=== PATIENT | female | born 1995 | race Caucasian/White ===

== ENCOUNTER 2019-03-17 08:08 | Inpatient (IN) ==
[2019-03-17] MEDS ORDERED: DEXTROSE 50% 50 ML SYRINGE IV PRN (08:43)
[2019-03-17] MEDS ORDERED: SODIUM CHLORIDE 0.9% 1000ML 1,000 ML IV PRN (08:43)
[2019-03-17] MEDS ORDERED: OXYTOCIN 30 UNITS/500 ML BAG IV PRN ×3 (08:43→21:26)
[2019-03-17] MEDS ORDERED: INSULIN REGULAR 250 UNITS in SODIUM CHLORIDE 0.9% 247.5 ML IV PRN (08:43)
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
[2019-03-17] MEDS: LACTATED RINGER'S 1,000 ML IV PRN ×3 (09:10→16:54)
[2019-03-17 09:14] LABS: Hematocrit (blood only) 31.6 % (37-47); Mean Platelet Volume 10.4 fL (7.4-10.4); Platelet Count 177 K/uL (130-400); RDW Coefficient of Variation 15.4 % (11.5-14.5); RDW Standard Deviation 44.6 fL (36.4-46.3); White Blood Count 11.12 K/uL (4.8-10.8)
[2019-03-17 09:22] LABS: Mean Corpuscular Hgb Conc 31.6 g/dL (32-36)
[2019-03-17] MEDS: DEXTROSE 5% 1,000 ML IV SCH ×2 (09:56→19:33)
--- NOTE | 2019-03-17 11:46 | Labor Progress Brief Note ---
Date of Service March 17, 2019 Subjective Reason For Note: Routine Evaluation Tolerating Contractions Assessment & Plan (1) Elective induction of labor planned: Continue current management, pitocin, epidural on request, insulin protocol prn Present on Admission?: Yes Physical Exam Genitourinary: Manual OB Exam: + cervical dilation 2 cm, + cervical effacement 90%, + station -2 and + amniotic fluid (AROM copious clear) clear OB Exam Monitor Tracing: + external FHT monitor used, + external uterine monitor used and + category I Results & Data Vital Signs (Past 12 Hours) Vital Signs Temp Pulse Resp BP 03/17/19 11:37 100 H 125/85 03/17/19 11:24 88 136/83 03/17/19 11:08 97 H 123/81 03/17/19 10:52 89 116/66 03/17/19 10:37 93 H 20 119/63 03/17/19 08:54 98.4 F 104 H 20 129/84 03/17/19 08:14 104 H 129/84
[2019-03-17] MEDS ORDERED: NALOXONE HCL 1 MG in SODIUM CHLORIDE 0.9% 1000ML 1,000 ML IV PRN (13:11)
[2019-03-17] MEDS ORDERED: ONDANSETRON INJ 2 MG/ML 2 ML VIAL IV PRN (13:11)
[2019-03-17] MEDS ORDERED: NALBUPHINE HCL INJ 10 MG/ML AMP IV PRN (13:11)
[2019-03-17] MEDS ORDERED: ePHEDrine sulfate 50 MG/ML AMP IV PRN (13:11)
[2019-03-17] MEDS ORDERED: DiphenhydrAMINE HCL 50 MG/ML VIAL IV PRN (13:11)
[2019-03-17] MEDS ORDERED: fentaNYL 2MCG/ML ROPIV 1.25MG/ML 100 ML BAG EPI PRN (13:11)
[2019-03-17] MEDS ORDERED: NALOXONE HCL 0.4 MG/1 ML VIAL/CARP IV PRN (13:11)
--- NOTE | 2019-03-17 13:14 | Anesthesiology Consultation ---
Date of Service March 17, 2019 Assessment & Plan Chart Review Chart Review: Patient NOT seen in Pre Admission Testing and Acceptable Risk for Labor Epidural Consults Requested none ASA ASA3 Proposed Anesthesia Anesthesia Type: Labor Epidural and CSE Risk / Benefits Reviewed With: PT / POA / Parent / Guardian, Accepts Plan and Informed Consent Obtained History Height/Weight Height: 5 ft 4 in Weight: 92.533 kg Allergies Allergy/AdvReac Type Severity Reaction Status Date / Time prochlorperazine AdvReac Mild Agitated Verified 03/17/19 08:25 [From Compazine] Medications Home Medications Medication Instructions Recorded Confirmed Last Taken insulin glargine (U- 100) 100 See Rx Instructions SUBCUT 03/16/19 03/17/19 03/15/19 19:00 unit/mL subcutaneous solution .COMPLEX ml ferrous sulfate 27 mg PO DAILY 03/17/19 03/17/19 03/16/19 22:00 vit no.[id number] 1 tab PO DAILY 03/17/19 03/17/19 03/16/19 08:00 [ Vitamin] Active Medications Generic Name Dose Route Start Last Admin Trade Name Freq PRN Reason Stop Dose Admin Dextrose 1,000 mls @ 100 mls/hr 03/17/19 08:45 03/17/19 13:02 D5w IV 04/16/19 08:44 100 mls/hr .Q10H LISY Infusion Protocol Insulin Human Regular 250 250 mls @ 0 mls/hr 03/17/19 08:43 03/17/19 13:02 units/ Sodium Chloride IV 04/16/19 08:42 0 mls/hr Q24H PRN Infusion BSG 80mg/dL or above Protocol Per Protocol Oxytocin 30 units in 500 mls @ 9 mls/hr 03/17/19 08:43 03/17/19 13:00 Pitocin IV 03/19/19 08:42 0.66 units/hr .Q24H PRN 11 mls/hr Labor Induction/Augmentation Titration Protocol 0.54 UNITS/HR Lactated Ringer's 1,000 mls @ 125 mls/hr 03/17/19 08:43 03/17/19 13:10 Lr IV 03/19/19 08:42 999 mls/hr .Q8H PRN Administration L&D Protocol Protocol NPO Date Last Intake of Fluids: 03/17/19 Time Last Intake of Fluids: 07:30 Date Last Intake of Solids: 03/17/19 Time Last Intake of Solids: 07:30 Past Medical History Medical History History of anxiety History of breast lump History of depression History of endometriosis History of migraine History of ovarian cyst Exercise / Class Metabolic Activity II 4-5 Yardwork/Stairs/Walk up hill Past Family History Family History Aunt Breast cancer Father Colorectal cancer Diabetes Mother Hypertension Grandfather (Maternal) Hypertension Past Surgical History Surgical History S/P laparoscopy diagnostic S/P ovarian cystectomy Past Anesthesia History No Family Hx of Anesthesia Complications and Other (Slow to wake up) History of PONV No Hx of PONV and No Hx of Motion Sickness Social History Smoking Status: Never smoker Do You Dip or Chew Tobacco: No Hx Alcohol Use: No Hx Substance Use: No Review of Systems no chest pain or sob Physical Exam Vital Signs Last Vital Signs Temp 36.9 C 03/17/19 08:54 Pulse 84 03/17/19 12:37 Resp 20 03/17/19 10:37 BP 124/73 03/17/19 12:37 ENMT Mouth: no TMJ abnormality Thyromental Distance: > or= 3.5 Finger Breadths Mallampati Class: II Neck normal visual inspection Respiratory normal respiratory effort Auscultation: lungs clear to auscultation bilaterally Cardiovascular Rate/Rhythm: regular rate and regular rhythm Musculoskeletal Spine: normal cervical ROM Neurologic moves all extremities Psychiatric Orientation: alert and oriented x 3 Testing Laboratory Results 03/17/19 09:02 03/17/19 03/17/19 03/17/19 13:00 12:00 11:00 POC Glucose 79 84 80 03/17/19 03/17/19 09:45 08:41 POC Glucose 81 80
[2019-03-17] MEDS ORDERED: fentaNYL citrate 100 MCG/2 ML VIAL ONE ×2 (13:38→20:53)
[2019-03-17] MEDS ORDERED: BUPIVACAINE 0.25% 30 ML VIAL ONE (13:38)
[2019-03-17] MEDS ORDERED: ePHEDrine sulfate 50 MG/ML AMP ONE (13:38)
[2019-03-17] MEDS ORDERED: fentaNYL 2MCG/ML ROPIV 1.25MG/ML 100 ML BAG EPI ONE (13:39)
--- NOTE | 2019-03-17 14:23 | Labor Progress Brief Note ---
Date of Service March 17, 2019 Subjective Reason For Note: Routine Evaluation Comfortable with Epidural Physical Exam Genitourinary: Manual OB Exam: + cervical dilation 4 cm, + cervical effacement 100%, + station -1 and + amniotic fluid clear OB Exam Monitor Tracing: + category I Results & Data Vital Signs (Past 12 Hours) Vital Signs Temp Pulse Resp BP Pulse Ox 03/17/19 14:17 103 H 100 03/17/19 14:12 92 H 98 03/17/19 14:10 87 110/71 03/17/19 14:07 102 H 97 03/17/19 14:02 92 H 100 03/17/19 13:57 90 99 03/17/19 13:52 105 H 16 131/79 100 03/17/19 13:48 87 123/71 03/17/19 13:47 91 H 95 03/17/19 13:46 90 119/63 03/17/19 13:44 93 H 20 123/68 03/17/19 13:42 96 H 116/67 99 03/17/19 13:40 87 112/58 L 03/17/19 13:38 100 H 121/68 03/17/19 13:37 102 H 100 03/17/19 13:36 91 H 128/74 03/17/19 13:33 82 126/82 03/17/19 13:32 98 H 97 03/17/19 13:31 83 122/75 03/17/19 13:27 91 H 99 03/17/19 13:23 103 H 94 03/17/19 13:22 98.6 F 95 H 98 03/17/19 12:37 84 124/73 03/17/19 11:37 100 H 125/85 03/17/19 11:24 88 136/83 03/17/19 11:08 97 H 123/81 03/17/19 10:52 89 116/66 03/17/19 10:37 93 H 20 119/63 03/17/19 08:54 98.4 F 104 H 20 129/84 03/17/19 08:14 104 H 129/84
--- NOTE | 2019-03-17 18:40 | Labor Progress Brief Note ---
Date of Service March 17, 2019 Subjective Reason For Note: Routine Evaluation Comfortable with Epidural Assessment & Plan (1) Elective induction of labor planned: Minimal urge to push. Will labor down until urge to hopefully minimize length of second stage, as this patient will undoubtedly have some difficulty with positioning and feeling exposed. She has done well with exams but still requires about 1 full minute of coached breathing and time to relax before she can permit a vaginal exam even with epidural. Will try to minimize the second stage and keep her covered as much as possible. Present on Admission?: Yes Physical Exam Genitourinary: Manual OB Exam: + cervical dilation 10 cm, + cervical effacement 100%, + station + 1 and + amniotic fluid clear OB Exam Monitor Tracing: + category I Results & Data Vital Signs (Past 12 Hours) Vital Signs Temp Pulse Resp BP Pulse Ox 03/17/19 18:36 106 H 99 03/17/19 18:28 111 H 90 03/17/19 18:27 92 H 93 03/17/19 18:25 98.2 F 104 H 20 135/83 03/17/19 18:22 91 H 100 03/17/19 18:17 86 99 03/17/19 18:16 88 91 03/17/19 18:12 91 H 98 03/17/19 18:11 86 91 03/17/19 18:10 87 22 123/72 03/17/19 18:07 84 96 03/17/19 18:04 94 H 94 03/17/19 18:02 90 99 03/17/19 17:59 92 H 88 L 03/17/19 17:57 86 100 03/17/19 17:54 95 H 128/61 03/17/19 17:53 90 93 03/17/19 17:52 94 H 100 03/17/19 17:48 80 91 03/17/19 17:47 82 98 03/17/19 17:42 91 H 100 03/17/19 17:40 86 132/83 03/17/19 17:38 104 H 91 03/17/19 17:37 106 H 97 03/17/19 17:33 91 H 93 03/17/19 17:32 92 H 94 03/17/19 17:27 90 98 03/17/19 17:24 91 H 127/70 03/17/19 17:22 94 H 98 03/17/19 17:17 92 H 98 03/17/19 17:12 103 H 99 03/17/19 17:10 86 117/78 03/17/19 17:07 90 97 03/17/19 17:02 80 98 03/17/19 16:57 91 H 98 03/17/19 16:55 95 H 119/86 03/17/19 16:52 83 97 03/17/19 16:47 81 96 03/17/19 16:42 84 93 03/17/19 16:41 88 125/88 03/17/19 16:37 84 97 03/17/19 16:32 82 97 03/17/19 16:27 91 H 97 03/17/19 16:25 98.2 F 82 16 127/76 03/17/19 16:22 91 H 97 03/17/19 16:17 92 H 97 03/17/19 16:12 84 97 03/17/19 16:11 81 121/67 03/17/19 16:07 107 H 100 03/17/19 16:02 92 H 97 03/17/19 15:57 83 97 03/17/19 15:55 76 110/68 03/17/19 15:52 81 97 03/17/19 15:47 85 97 03/17/19 15:43 98.8 F 20 03/17/19 15:42 95 H 98 03/17/19 15:40 75 124/69 03/17/19 15:37 82 97 03/17/19 15:32 81 97 03/17/19 15:27 81 97 03/17/19 15:24 80 115/70 03/17/19 15:22 82 96 03/17/19 15:17 82 97 03/17/19 15:12 93 H 97 03/17/19 15:10 83 107/62 03/17/19 15:07 82 97 03/17/19 15:02 86 97 03/17/19 14:57 80 97 03/17/19 14:56 89 108/64 03/17/19 14:52 85 97 03/17/19 14:47 80 97 03/17/19 14:42 92 H 96 03/17/19 14:40 93 H 115/65 03/17/19 14:37 79 97 03/17/19 14:32 88 98 03/17/19 14:29 98.6 F 98 H 20 123/67 03/17/19 14:27 95 H 94 03/17/19 14:24 83 94 03/17/19 14:22 96 H 98 03/17/19 14:17 103 H 100 03/17/19 14:12 92 H 98 03/17/19 14:10 87 110/71 03/17/19 14:07 102 H 97 03/17/19 14:02 92 H 100 03/17/19 13:57 90 99 03/17/19 13:52 105 H 16 131/79 100 03/17/19 13:48 87 123/71 03/17/19 13:47 91 H 95 03/17/19 13:46 90 119/63 03/17/19 13:44 93 H 20 123/68 03/17/19 13:42 96 H 116/67 99 03/17/19 13:40 87 112/58 L 03/17/19 13:38 100 H 121/68 03/17/19 13:37 102 H 100 03/17/19 13:36 91 H 128/74 03/17/19 13:33 82 126/82 03/17/19 13:32 98 H 97 03/17/19 13:31 83 122/75 03/17/19 13:27 91 H 99 03/17/19 13:23 103 H 94 03/17/19 13:22 98.6 F 95 H 98 03/17/19 12:37 84 124/73 03/17/19 11:37 100 H 125/85 03/17/19 11:24 88 136/83 03/17/19 11:08 97 H 123/81 03/17/19 10:52 89 116/66 03/17/19 10:37 93 H 20 119/63 03/17/19 08:54 98.4 F 104 H 20 129/84 03/17/19 08:14 104 H 129/84
--- NOTE | 2019-03-17 20:04 | Labor Progress Brief Note ---
Date of Service March 17, 2019 Subjective Reason For Note: Routine Evaluation Comfortable with Epidural Assessment & Plan (1) Elective induction of labor planned: Urge to push, complete, head descended to +2. Begin second stage. First pushes are very effective and patient is receptive to coaching and positioning in lithotomy. Present on Admission?: Yes Physical Exam Genitourinary: Manual OB Exam: + cervical dilation 10 cm, + cervical effacement 100%, + station + 2 and + amniotic fluid clear OB Exam Monitor Tracing: + category I Results & Data Vital Signs (Past 12 Hours) Vital Signs Temp Pulse Resp BP Pulse Ox 03/17/19 19:58 95 H 99 03/17/19 19:56 106 H 88 L 03/17/19 19:55 102 H 141/78 H 03/17/19 19:53 97 H 99 03/17/19 19:49 109 H 119/74 03/17/19 19:48 91 H 98 03/17/19 19:43 93 H 99 03/17/19 19:38 106 H 99 03/17/19 19:33 101 H 100 03/17/19 19:28 91 H 99 03/17/19 19:25 93 H 91 03/17/19 19:24 105 H 138/73 03/17/19 19:23 100 H 100 03/17/19 19:20 106 H 91 03/17/19 19:18 92 H 100 03/17/19 19:15 98.4 F 18 03/17/19 19:13 94 H 100 03/17/19 19:10 97 H 137/80 03/17/19 19:09 97 H 89 L 03/17/19 19:08 102 H 98 03/17/19 19:03 97 H 100 03/17/19 19:00 108 H 133/69 03/17/19 18:58 114 H 92 03/17/19 18:53 119 H 89 L 03/17/19 18:46 102 H 100 03/17/19 18:41 110 H 100 03/17/19 18:40 98 H 113/69 03/17/19 18:39 20 03/17/19 18:36 106 H 99 03/17/19 18:28 111 H 90 03/17/19 18:27 92 H 93 03/17/19 18:25 98.2 F 104 H 20 135/83 03/17/19 18:22 91 H 100 03/17/19 18:17 86 99 03/17/19 18:16 88 91 03/17/19 18:12 91 H 98 03/17/19 18:11 86 91 03/17/19 18:10 87 22 123/72 03/17/19 18:07 84 96 03/17/19 18:04 94 H 94 03/17/19 18:02 90 99 03/17/19 17:59 92 H 88 L 03/17/19 17:57 86 100 03/17/19 17:54 95 H 128/61 03/17/19 17:53 90 93 03/17/19 17:52 94 H 100 03/17/19 17:48 80 91 03/17/19 17:47 82 98 03/17/19 17:42 91 H 100 03/17/19 17:40 86 132/83 03/17/19 17:38 104 H 91 03/17/19 17:37 106 H 97 03/17/19 17:33 91 H 93 03/17/19 17:32 92 H 94 03/17/19 17:27 90 98 03/17/19 17:24 91 H 127/70 03/17/19 17:22 94 H 98 03/17/19 17:17 92 H 98 03/17/19 17:12 103 H 99 03/17/19 17:10 86 117/78 03/17/19 17:07 90 97 03/17/19 17:02 80 98 03/17/19 16:57 91 H 98 03/17/19 16:55 95 H 119/86 03/17/19 16:52 83 97 03/17/19 16:47 81 96 03/17/19 16:42 84 93 03/17/19 16:41 88 125/88 03/17/19 16:37 84 97 03/17/19 16:32 82 97 03/17/19 16:27 91 H 97 03/17/19 16:25 98.2 F 82 16 127/76 03/17/19 16:22 91 H 97 03/17/19 16:17 92 H 97 03/17/19 16:12 84 97 03/17/19 16:11 81 121/67 03/17/19 16:07 107 H 100 03/17/19 16:02 92 H 97 03/17/19 15:57 83 97 03/17/19 15:55 76 110/68 03/17/19 15:52 81 97 03/17/19 15:47 85 97 03/17/19 15:43 98.8 F 20 03/17/19 15:42 95 H 98 03/17/19 15:40 75 124/69 03/17/19 15:37 82 97 03/17/19 15:32 81 97 03/17/19 15:27 81 97 03/17/19 15:24 80 115/70 03/17/19 15:22 82 96 03/17/19 15:17 82 97 03/17/19 15:12 93 H 97 03/17/19 15:10 83 107/62 03/17/19 15:07 82 97 03/17/19 15:02 86 97 03/17/19 14:57 80 97 03/17/19 14:56 89 108/64 03/17/19 14:52 85 97 03/17/19 14:47 80 97 03/17/19 14:42 92 H 96 03/17/19 14:40 93 H 115/65 03/17/19 14:37 79 97 03/17/19 14:32 88 98 03/17/19 14:29 98.6 F 98 H 20 123/67 03/17/19 14:27 95 H 94 03/17/19 14:24 83 94 03/17/19 14:22 96 H 98 03/17/19 14:17 103 H 100 03/17/19 14:12 92 H 98 03/17/19 14:10 87 110/71 03/17/19 14:07 102 H 97 03/17/19 14:02 92 H 100 03/17/19 13:57 90 99 03/17/19 13:52 105 H 16 131/79 100 03/17/19 13:48 87 123/71 03/17/19 13:47 91 H 95 03/17/19 13:46 90 119/63 03/17/19 13:44 93 H 20 123/68 03/17/19 13:42 96 H 116/67 99 03/17/19 13:40 87 112/58 L 03/17/19 13:38 100 H 121/68 03/17/19 13:37 102 H 100 03/17/19 13:36 91 H 128/74 03/17/19 13:33 82 126/82 03/17/19 13:32 98 H 97 03/17/19 13:31 83 122/75 03/17/19 13:27 91 H 99 03/17/19 13:23 103 H 94 03/17/19 13:22 98.6 F 95 H 98 03/17/19 12:37 84 124/73 03/17/19 11:37 100 H 125/85 03/17/19 11:24 88 136/83 03/17/19 11:08 97 H 123/81 03/17/19 10:52 89 116/66 03/17/19 10:37 93 H 20 119/63 03/17/19 08:54 98.4 F 104 H 20 129/84 03/17/19 08:14 104 H 129/84
--- NOTE | 2019-03-17 21:13 | Delivery Summary ---
Vaginal Delivery Summary Date of Service March 17, 2019 Vaginal Delivery Summary DIAGNOSES: 1. Brown intrauterine at term gestation. 2. Induction of labor. 3. Group B Streptococcus Neg. 4. Insulin-dependent gestational diabetes. PROCEDURE: Spontaneous vaginal delivery and repair of first degree laceration. SURGEON: Christine Sunshine MD. SHED BOSS: None. ESTIMATED BLOOD LOSS: 300 mL. COMPLICATIONS: None. PLACENTA: Spontaneous and intact with a 3-vessel cord. DISPOSITION: Stable to labor and delivery. DESCRIPTION: The patient pushed well and brought the head to in OA position. The 's head was allowed to deliver with contraction force and no further active pushing, with the perineum protected during this time. The shoulders delivered easily with a maternal pushing effort. There was no nuchal cord. The right shoulder was anterior. The shoulders and body delivered without any difficulty, and the infant was placed on the maternal abdomen. It was vigorous and moving all extremities, and making respiratory efforts. The cord was doubly clamped by the MD and then cut by the FOB. The placenta delivered spontaneously and was noted to be intact and with a 3VC. The cervix, vagina and perineum were examined and were found to have a first degree laceration. 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 The repair was done with 3-0 vicryl and was uncomplicated. The fundus was firm and lochia minimal immediately after delivery.
[2019-03-17] MEDS ORDERED: fentaNYL citrate 100 MCG/2 ML VIAL IV STA (21:26)
[2019-03-17] MEDS ORDERED: DIPHTHERIA/TETANUS/PERTUSSIS 0.5 ML SYR/VIAL IM ONE (21:26)
[2019-03-17] MEDS ORDERED: LACTATED RINGER'S 1,000 ML IV SCH (21:26)
[2019-03-17] MEDS ORDERED: HYDROCORTISONE ACETATE 25 MG SUPP PR PRN (21:26)
[2019-03-17] MEDS ORDERED: BENZOCAINE 20% AER SPR 82.5 GM CAN EXT PRN (21:26)
[2019-03-17] MEDS ORDERED: SUPERCREAM 0.870% 15 GM JAR EXT PRN (21:26)
[2019-03-17] MEDS ORDERED: ACETAMINOPHEN 325 MG TAB PO PRN (21:26)
--- NOTE | 2019-03-17 21:36 | Anesthesia Procedure Note ---
Date of Service March 17, 2019 Anesthesia Post Epidural Note Vital Signs Vital Signs: Temp Pulse Resp BP Pulse Ox 36.9 C 112 H 18 116/74 92 03/17/19 19:15 03/17/19 21:27 03/17/19 19:15 03/17/19 21:27 03/17/19 20:58 Pain Intensity Back: Pain Intensity: 1 Notes Mental Status: alert / awake / arousable and participated in evaluation Nausea / Vomiting: adequately controlled Pain: adequately controlled Airway Patency, RR, SpO2: stable & adequate BP & HR: stable & adequate Hydration State: stable & adequate Neuraxial Anesthesia: was administered and sensory block is resolving Anesthetic Complications: no major complications apparent and Pt Satisfied with anesthetic care Epidural: Removed without complications and With tip intact
[2019-03-18] MEDS: IBUPROFEN 600 MG TAB PO PRN ×5 (00:15→23:33)
--- NOTE | 2019-03-18 06:17 | Obstetrical Progress Note ---
Date of Service <Gregoria Harrison MD - Last Filed: 03/18/19 06:20> March 18, 2019 Assessment & Plan <Gregoria Harrison MD - Last Filed: 03/18/19 06:20> (1) Status post vaginal delivery: Loreta is a 24 yo on PPD 1 after induced - GBS -, Blood Type Rh - , Rubella immune -awaiting blood type results of baby: if baby is rh+ we will administer dose of Rhogam to mother -Vitals reviewed and WNL -patient is doing clinically well encourage ambulation, provide analgesia as needed, monitor lochia anticipated d/c tomorrow (03/19) Subjective <Gregoria Harrison MD - Last Filed: 03/18/19 06:20> Ambulation: ambulating normally Voiding: no voiding problems Passing Gas:: Yes Diet Tolerance:: regular diet Lochia:: Moderate Feeding Type:: bottle feeding Current Pain Level(1-10): 6 examined at bedside Physical Exam <Gregoria Harrison MD - Last Filed: 03/18/19 06:20> General Appearance: Alert, oriented. No acute distress. Cardiac: Regular rate and rhythm, S1 and S2 appreciated. No murmurs/rubs/gallops. Respiratory: Clear to auscultation anterior and posteriorly, no wheezes/rales/rhonchi/crackles. No accessory muscle use. Symmetrical chest rise. Abdomen: Soft, nontender, nondistended. Normoactive bowel sounds throughout. Uterus: Uterine fundus firm, palpable 2 cm above umbilicus. Lower Extremities: No lower extremity edema. No calf pain on compression. Results & Data <Gregoria Harrison MD - Last Filed: 03/18/19 06:20> Vital Signs (Past 12 Hours) Vital Signs Temp Pulse Resp BP Pulse Ox 03/18/19 04:45 36.9 C 83 18 111/73 03/18/19 00:05 36.8 C 92 H 18 113/73 03/17/19 23:09 107 H 116/69 03/17/19 23:08 37.2 C 18 03/17/19 23:07 112 H 116/75 03/17/19 22:57 114 H 123/80 03/17/19 22:48 120 H 128/78 03/17/19 22:39 114 H 155/73 H 03/17/19 22:38 18 03/17/19 22:27 107 H 130/64 03/17/19 22:17 116 H 136/65 03/17/19 22:16 112 H 131/71 03/17/19 22:08 18 03/17/19 21:57 104 H 135/81 03/17/19 21:53 104 H 18 135/81 03/17/19 21:51 107 H 141/70 H 03/17/19 21:38 18 135/81 03/17/19 21:37 121 H 116/73 03/17/19 21:27 112 H 116/74 03/17/19 21:23 18 03/17/19 21:17 112 H 113/77 03/17/19 21:08 37.0 C 105 H 18 130/81 03/17/19 20:58 130 H 92 03/17/19 20:54 115 H 130/63 03/17/19 20:53 114 H 97 03/17/19 20:48 115 H 98 03/17/19 20:44 130 H 88 L 03/17/19 20:43 131 H 97 03/17/19 20:39 101 H 137/71 03/17/19 20:38 119 H 97 03/17/19 20:33 130 H 98 03/17/19 20:32 129 H 85 L 03/17/19 20:31 18 03/17/19 20:28 149 H 97 03/17/19 20:23 145 H 97 03/17/19 20:21 118 H 118/56 L 03/17/19 20:19 127 H 78 L 03/17/19 20:18 124 H 98 03/17/19 20:13 131 H 92 03/17/19 20:08 160 H 99 03/17/19 20:03 121 H 96 03/17/19 20:01 18 03/17/19 19:58 95 H 99 03/17/19 19:56 106 H 88 L 03/17/19 19:55 102 H 141/78 H 03/17/19 19:53 97 H 99 03/17/19 19:49 109 H 119/74 03/17/19 19:48 91 H 98 03/17/19 19:43 93 H 99 03/17/19 19:38 106 H 99 03/17/19 19:33 101 H 100 03/17/19 19:30 18 03/17/19 19:28 91 H 99 03/17/19 19:25 93 H 91 03/17/19 19:24 105 H 138/73 03/17/19 19:23 100 H 100 03/17/19 19:20 106 H 91 03/17/19 19:18 92 H 100 03/17/19 19:15 36.9 C 18 03/17/19 19:13 94 H 100 03/17/19 19:10 97 H 137/80 03/17/19 19:09 97 H 89 L 03/17/19 19:08 102 H 98 03/17/19 19:03 97 H 100 03/17/19 19:00 108 H 133/69 03/17/19 18:58 114 H 92 03/17/19 18:53 119 H 89 L 03/17/19 18:46 102 H 100 03/17/19 18:41 110 H 100 03/17/19 18:40 98 H 113/69 03/17/19 18:39 20 03/17/19 18:36 106 H 99 03/17/19 18:28 111 H 90 03/17/19 18:27 92 H 93 03/17/19 18:25 36.8 C 104 H 20 135/83 03/17/19 18:22 91 H 100 03/17/19 18:17 86 99 03/17/19 18:16 88 91 <Christine Sunshine MD - Last Filed: 03/18/19 07:40> Co-Signing Physician Notes I have reviewed the resident's note and examined the patient myself, and agree with the note above. Resident Activity Tracking <Gregoria Harrison MD - Last Filed: 03/18/19 06:20> Resident Involvement: Resident Care Provided Care Provided: Adult Hospital Medicine
[2019-03-18 06:49] LABS: Hematocrit (blood only) 28.6 % (37-47); Hemoglobin 9.2 g/dL (12.0-16.0); Mean Corpuscular Hgb Conc 32.2 g/dL (32-36); Mean Platelet Volume 10.6 fL (7.4-10.4); Platelet Count 152 K/uL (130-400); RDW Coefficient of Variation 15.4 % (11.5-14.5); RDW Standard Deviation 44.6 fL (36.4-46.3); Red Blood Count 3.62 M/uL (4.2-5.4); White Blood Count 12.36 K/uL (4.8-10.8)
[2019-03-18] MEDS: DOCUSATE SODIUM 100 MG CAP PO SCH ×2 (08:20→21:09)
[2019-03-18] MEDS: OXYCODONE/ACETAMINOPHEN 5mg/325mg TAB PO PRN ×3 (08:21→23:34)
[2019-03-18] MEDS: PRENATAL VITAMIN 1 TAB PO SCH (08:23)
[2019-03-18] MEDS ORDERED: BISACODYL 5 MG TABEC PO PRN (13:57)
[2019-03-18] MEDS ORDERED: BISACODYL 10 MG SUPP PR PRN (19:36)
[2019-03-18] MEDS ORDERED: MAGNESIUM HYDROXIDE SUSP 30 ML UDC PO ONE (19:38)
[2019-03-18] MEDS ORDERED: MAGNESIUM HYDROXIDE SUSP 30 ML UDC ONE (19:42)
[2019-03-18] MEDS ORDERED: COUGH DROP (SUGAR FREE) LOZ 24 LOZ/1 BOX BUCCAL ONE (23:39)
[2019-03-18] MEDS ORDERED: COUGH DROP (SUGAR FREE) LOZ 24 LOZ/1 BOX BUCCAL PRN (23:42)
[2019-03-19] MEDS: IBUPROFEN 600 MG TAB PO PRN (05:15)
--- NOTE | 2019-03-19 06:12 | Obstetrical Progress Note ---
Date of Service <Gregoria Harrison MD - Last Filed: 03/19/19 07:21> March 19, 2019 Assessment & Plan <Gregoria Harrison MD - Last Filed: 03/19/19 07:21> (1) Status post vaginal delivery: Loreta is a 24 yo on PPD 2 after induced - GBS -, Blood Type Rh - , Rubella immune -baby's blood type O+, recieved 2nd dose of Rhogam -patient encouraged to contact PCP if cough does not resolve within 2-3 days -Vitals reviewed and WNL -patient is doing clinically well reviewed d/c instructions. ready for d/c Schedule follow-up visit with Dr. Sunshine in 6 weeks. Subjective <Gregoria Harrison MD - Last Filed: 03/19/19 07:21> Ambulation: ambulating normally Voiding: no voiding problems Passing Gas:: Yes Diet Tolerance:: regular diet Lochia:: Moderate Feeding Type:: bottle feeding Current Pain Level(1-10): 5 examined at bedside; patient does complain of cough that she had prior to arrival of hospital, which she attributes to a head cold Physical Exam <Gregoria Harrison MD - Last Filed: 03/19/19 07:21> General Appearance: Alert, oriented. No acute distress. Cardiac: Regular rate and rhythm, S1 and S2 appreciated. No murmurs/rubs/ gallops. Respiratory: Clear to auscultation anterior and posteriorly, no wheezes/rales/rhonchi/crackles. No accessory muscle use. Symmetrical chest rise. Abdomen: Soft, nontender, nondistended. Normoactive bowel sounds throughout. Uterus: Uterine fundus firm, palpable 1 cm above umbilicus. Lower Extremities: trace lower extremity edema. No calf pain on compression. Results & Data <Gregoria Harrison MD - Last Filed: 03/19/19 07:21> Vital Signs (Past 12 Hours) Vital Signs Temp Pulse Resp BP Pulse Ox 03/18/19 23:30 36.5 C 81 20 112/75 98 03/18/19 19:30 36.4 C L 93 H 20 132/80 <Shaye Phan MD, FACOG - Last Filed: 03/19/19 07:26> Co-Signing Physician Notes Resident Physician Supervision Note: I interviewed and examined the patient. Discussed with Dr. Harrison and agree with findings and plan as documented in the note. Any exceptions or clarifications are listed here: Doing well. PLan d/c . Instructions given. Documented By: Shaye Phan MD, FACOG Resident Activity Tracking <Gregoria Harrison MD - Last Filed: 03/19/19 07:21> Resident Involvement: Resident Care Provided Care Provided: OB Delivery
[2019-03-19 06:25] LABS: Hematocrit (blood only) 29.2 % (37-47); Hemoglobin 9.5 g/dL (12.0-16.0)
[2019-03-19] MEDS: OXYCODONE/ACETAMINOPHEN 5mg/325mg TAB PO PRN (07:59)
[2019-03-19] MEDS: DOCUSATE SODIUM 100 MG CAP PO SCH (07:59)
[2019-03-19] MEDS: PRENATAL VITAMIN 1 TAB PO SCH (07:59)
== END 2019-03-19 10:48 | disposition home or self-care (01) | DRG 807 ==
LOC: 4S1 08:08 → 4S2 03-18 00:11

== ENCOUNTER 2020-04-26 07:47 | Inpatient (IN) ==
[2020-04-26] MEDS ORDERED: OXYTOCIN 30 UNITS/500 ML BAG IV PRN ×2 (08:02)
[2020-04-26 08:22] LABS: Hematocrit (blood only) 33.6 % (37-47); Hemoglobin 10.4 g/dL (12.0-16.0); Mean Corpuscular Hemoglobin 24.2 pg (25-34); Mean Corpuscular Volume 78.1 fL (80-100); Mean Platelet Volume 10.1 fL (7.4-10.4); Nucleated RBC # (auto) 0.02 K/uL (0-0); Nucleated RBC % (auto) 0.2 %; Platelet Count 190 K/uL (130-400); RDW Coefficient of Variation 16.5 % (11.5-14.5); White Blood Count 11.16 K/uL (4.8-10.8)
--- NOTE | 2020-04-26 08:30 | Labor Progress Brief Note ---
Date of Service April 26, 2020 Subjective Patient admitted for IOL, 39w1d with GDM diet controlled, polyhydramnios, Rh negative, mom with PTSD and poor tolerance of exams. Anthony placed last night and fell out at 2am per patient. No LOF, VB or contractions. +FM. Assessment & Plan (1) Polyhydramnios affecting : GDMA1 with poly, for IOL at 39+ weeks. PTSD limits exam tolerance. Can have epidural early, and will anticipate next exam and AROM after patient has that in place. Admission and Anticipated Discharge Date Admission Date: April 26, 2020 Physical Exam Physical Exam: Limited by patient tolerance of exam, despite coaching. 3-4cm, thick, soft, hi, anterior. EFW 7-8lb. FHT Cat 1 [place] quiet Results & Data ([facility]) Vital Signs (Past 12 Hours) Vital Signs Temp Pulse Resp BP 04/26/20 08:06 98.6 F 20 04/26/20 08:01 116 H 145/67 H Coding Level of Care Code None Diagnoses Polyhydramnios affecting O40.9XX0
[2020-04-26] MEDS: LACTATED RINGER'S 1,000 ML IV PRN ×2 (08:52→11:03)
[2020-04-26] MEDS ORDERED: ePHEDrine sulfate 50 MG/ML AMP ONE (10:25)
[2020-04-26] MEDS ORDERED: fentaNYL citrate 100 MCG/2 ML VIAL ONE (10:26)
[2020-04-26] MEDS ORDERED: BUPIVACAINE 0.25% 30 ML VIAL ONE (10:26)
[2020-04-26] MEDS ORDERED: fentaNYL 2MCG/ML ROPIV 1.25MG/ML 100 ML BAG EPI ONE (10:27)
--- NOTE | 2020-04-26 10:52 | Anesthesiology Consultation ---
Date of Service April 26, 2020 Assessment & Plan (1) Encounter for pre-operative examination: Chart Review Chart Review: Acceptable Risk for Labor Epidural Consults Requested none ASA ASA2 Proposed Anesthesia Anesthesia Type: Labor Epidural Risk / Benefits Reviewed With: PT / POA / Parent / Guardian, Accepts Plan and Informed Consent Obtained History Height/Weight Height: 5 ft 4 in Weight: 99.705 kg Allergies Allergy/AdvReac Type Severity Reaction Status Date / Time prochlorperazine AdvReac Mild Agitated Verified 04/25/20 10:51 [From Compazine] Medications Home Medications Medication Instructions Recorded Confirmed Last Taken prenat.vits,yun,rhk-fyda-aenvd 1 tab PO DAILY 09/07/19 04/26/20 04/23/20 acetone (urine) test #50 ea 02/15/20 04/25/20 Unknown blood sugar diagnostic #150 ea 02/15/20 04/25/20 Unknown Active Medications Generic Name Dose Route Start Last Admin Trade Name Freq PRN Reason Stop Dose Admin Lactated Ringer's 1,000 mls @ 125 mls/hr 04/26/20 08:02 04/26/20 10:25 Lr IV 04/28/20 08:01 999 mls/hr .Q8H PRN Infusion L&D Protocol Protocol Oxytocin 30 units in 500 mls @ 5 mls/hr 04/26/20 08:02 04/26/20 10:04 Pitocin IV 04/28/20 08:01 0.3 units/hr .Q24H PRN 5 mls/hr Labor Induction/Augmentation Titration Protocol 0.3 UNITS/HR Past Medical History Medical History History of anxiety History of breast lump History of depression History of endometriosis History of migraine History of ovarian cyst Polyhydramnios affecting Exercise / Class Metabolic Activity II 4-5 Yardwork/Stairs/Walk up hill Past Family History Family History Aunt Breast cancer Father Colorectal cancer Diabetes Mother Hypertension Grandfather (Maternal) Hypertension Past Surgical History Surgical History S/P laparoscopy diagnostic S/P ovarian cystectomy Past Anesthesia History No Hx of Anesthesia Complications and No Family Hx of Anesthesia Complications History of PONV No Hx of PONV and No Hx of Motion Sickness Social History Smoking Status: Never smoker Hx Alcohol Use: No Hx Substance Use: No substance use type: does not use Physical Exam Vital Signs Last Vital Signs Temp 98.6 F 04/26/20 08:06 Pulse 100 H 04/26/20 10:47 Resp 18 04/26/20 10:04 BP 107/63 04/26/20 10:04 Pulse Ox 100 04/26/20 10:47 ENMT Mouth: no dentition abnormality Thyromental Distance: > or= 3.5 Finger Breadths Mallampati Class: II Neck normal visual inspection Respiratory normal respiratory effort Auscultation: lungs clear to auscultation bilaterally Cardiovascular Rate/Rhythm: regular rate and regular rhythm Testing Laboratory Results 04/26/20 08:10 04/26/20 08:59 POC Glucose 108 H
[2020-04-26] MEDS ORDERED: fentaNYL 2MCG/ML ROPIV 1.25MG/ML 100 ML BAG EPI PRN (11:14)
[2020-04-26] MEDS ORDERED: NALOXONE HCL 0.4 MG/1 ML VIAL/CARP IV PRN (11:14)
[2020-04-26] MEDS ORDERED: DiphenhydrAMINE HCL 50 MG/ML VIAL IV PRN (11:14)
[2020-04-26] MEDS ORDERED: NALOXONE HCL 1 MG in SODIUM CHLORIDE 0.9% 1000ML 1,000 ML IV PRN (11:14)
[2020-04-26] MEDS ORDERED: ePHEDrine sulfate 50 MG/ML AMP IV PRN (11:14)
[2020-04-26] MEDS ORDERED: ONDANSETRON INJ 2 MG/ML 2 ML VIAL IV PRN (11:14)
--- NOTE | 2020-04-26 11:29 | Labor Progress Brief Note ---
Date of Service April 26, 2020 Subjective Comfortable with epidural. Assessment & Plan Admission and Anticipated Discharge Date Admission Date: April 26, 2020 Physical Exam Physical Exam: /50/-2 AROM copious fluid, light mec staining noted FHT Cat 1 [place] Q3 Results & Data ([facility]) Vital Signs (Past 12 Hours) Vital Signs Temp Pulse Resp BP Pulse Ox 04/26/20 11:27 89 99 04/26/20 11:26 108/66 04/26/20 11:24 100 H 100/63 04/26/20 11:22 93 H 98/54 L 98 04/26/20 11:20 93 H 106/50 L 04/26/20 11:18 91 H 111/59 L 04/26/20 11:17 93 H 98 04/26/20 11:15 101 H 114/54 L 04/26/20 11:12 105 H 120/68 99 04/26/20 11:10 91 H 120/58 L 04/26/20 11:09 98.6 F 102 H 18 121/70 04/26/20 11:07 93 H 98 04/26/20 11:04 90 123/78 04/26/20 11:02 94 H 118/82 99 04/26/20 10:57 107 H 79 L 04/26/20 10:56 95 H 145/90 H 04/26/20 10:52 98 H 100 04/26/20 10:47 100 H 100 04/26/20 10:42 108 H 100 04/26/20 10:37 88 100 04/26/20 10:04 85 18 107/63 04/26/20 08:55 100 H 18 128/81 04/26/20 08:06 98.6 F 20 04/26/20 08:01 98.6 F 116 H 20 145/67 H Coding Level of Care Code None
[2020-04-26] MEDS ORDERED: CALCIUM CARBONATE 500 MG CHEWABLE TAB PO PRN (14:44)
--- NOTE | 2020-04-26 15:40 | Delivery Summary ---
Vaginal Delivery Summary Date of Service April 26, 2020 Vaginal Delivery Summary DIAGNOSES: 1. Brown intrauterine at 39w1d gestation. 2. Induction of Labor. 3. Group B Streptococcus Neg. 4. Gestational Diabetes, diet controlled 5. Polyhydramnios PROCEDURE: Spontaneous vaginal delivery and repair of 2nd degree laceration. SURGEON: Christine Sunshine MD. GLUING CREW LEADER: None. ESTIMATED BLOOD LOSS: 350 mL. COMPLICATIONS: None. PLACENTA: Spontaneous and intact with a 3-vessel cord. DISPOSITION: Stable to labor and delivery. DESCRIPTION: The patient pushed well and brought the head to in OA position. The 's head was allowed to deliver with contraction force and no further active pushing, with the perineum protected during this time. The shoulders delivered easily with a maternal pushing effort. There was no nuchal cord. The right shoulder was anterior. The shoulders and body delivered without any difficulty, and the infant was placed on the maternal abdomen. It was vigorous and moving all extremities, and making respiratory efforts. The cord was doubly clamped by the MD and then cut by the FOB. The placenta delivered spontaneously and was noted to be intact and with a 3VC. The cervix, vagina and perineum were examined and were found to have a 2nd degree laceration in the posterior L vagina, reaching to the fourchette but not continuing onto the skin, and with a grape-sized hematoma having formed behind the skin of the perineum. The laceration was repaired using 3-0 vicryl in a running locked fashion, and in doing that, the bleeding / growth of the hematoma was stopped. Observation over several minutes showed stability of the hematoma. The fundus was firm and lochia minimal immediately after delivery. The nurse was made aware of the hematoma and will be observing for increase in size at each fundal check. [facility] Vaginal Delivery Charge Vaginal Delivery Codes: 99143 global code for the antepartum, delivery, and post-
[2020-04-26] MEDS ORDERED: DIPHTHERIA/TETANUS/PERTUSSIS 0.5 ML SYR/VIAL IM ONE (15:52)
[2020-04-26] MEDS ORDERED: BENZOCAINE 20% AER SPR 82.5 GM CAN EXT PRN (15:52)
[2020-04-26] MEDS ORDERED: SUPERCREAM 0.870% 15 GM JAR EXT PRN (15:52)
[2020-04-26] MEDS ORDERED: HYDROCORTISONE ACETATE 25 MG SUPP PR PRN (15:52)
[2020-04-26] MEDS ORDERED: ACETAMINOPHEN 325 MG TAB PO PRN (15:52)
--- NOTE | 2020-04-26 16:13 | Anesthesia Procedure Note ---
Date of Service April 26, 2020 Anesthesia Post Epidural Note Vital Signs Vital Signs: Temp Pulse Resp BP Pulse Ox 97.5 F L 97 H 20 138/94 94 04/26/20 14:45 04/26/20 15:59 04/26/20 15:55 04/26/20 15:59 04/26/20 15:29 Pain Intensity Abdomen: Pain Intensity: 0 Notes Mental Status: alert / awake / arousable and participated in evaluation Nausea / Vomiting: adequately controlled Pain: adequately controlled Airway Patency, RR, SpO2: stable & adequate BP & HR: stable & adequate Hydration State: stable & adequate Neuraxial Anesthesia: was administered and sensory block is resolving Anesthetic Complications: no major complications apparent and Pt Satisfied with anesthetic care Epidural: Removed without complications and With tip intact
[2020-04-26] MEDS: IBUPROFEN 600 MG TAB PO PRN ×2 (17:05→21:10)
[2020-04-26] MEDS: OXYCODONE/ACETAMINOPHEN 5mg/325mg TAB PO PRN ×2 (17:05→21:09)
[2020-04-26] MEDS: DOCUSATE SODIUM 100 MG CAP PO SCH (20:12)
[2020-04-27] MEDS: OXYCODONE/ACETAMINOPHEN 5mg/325mg TAB PO PRN ×4 (03:47→20:03)
[2020-04-27] MEDS: IBUPROFEN 600 MG TAB PO PRN ×4 (03:48→20:04)
--- NOTE | 2020-04-27 05:31 | Obstetrical Progress Note ---
Date of Service April 27, 2020 Assessment & Plan (1) Encounter for supervision of normal in multigravida, antepartum: S/p after IOL for GDM (diet-controlled), Day 1 - Feels well today. Eating well, voiding well, ambulating well. - Pain mostly controlled with ibuprofen 600mg Q4H PRN and Percocet Q4H PRN. - Vital signs reviewed and WNL. - Hemoglobin reviewed. 10.4 --> [] (today). - Blood Type: A-, GBS negative, Rubella Immune, COVID-19 negative - Continue routine post- care: encourage ambulation, monitor and control pain with Motrin and Percocet PRN (look for more improvement in pain as hematoma continues to resolve), continue regular OB diet, monitor lochia - Discussed but patient has elected to bottle feed with formula. - After discharge, will have 6-wk follow-up with Po Nguyen TRIMMING MACHINE OPERATOR Admission and Anticipated Discharge Date Admission Date: April 26, 2020 Supervising Physician Co-Signing Physician Notes I have reviewed the resident's note and examined the patient myself, and agree with the note above. Subjective HPI Loreta Camacho is a 25 y/o female who is PPD 1 spontaneous vaginal delivery after IOL for GDM (diet-controlled) at 39 1/7 weeks. She reports feeling well overall this morning. Mild abdominal cramping and 5-8/10 pain well managed on analgesics (both Ibuprofen and Percocet). Voiding well. Tolerating meals overnight without difficulty. Patient has been able to ambulate some. Not passing gas and no bowel movement. Has persistent lochia with some improvement this morning. Currently bottle-feeding with formula. Review of Systems Review of Systems: ROS Denies fever or chills. Denies shortness of breath or cough. Denies chest pain. Denies breast pain. Denies dysuria. Denies leg pain or leg swelling. Physical Exam Physical Exam: PE General: Alert, oriented. No acute distress. Cardiac: Regular rate and rhythm. No murmurs. Respiratory: Clear to auscultation bilaterally a/p, no wheezes/rales/rhonchi. No increased work of breathing. Symmetrical chest rise. No respiratory distress. Abdomen: Soft, nontender, nondistended. Bowel sounds present. Uterus: Uterine fundus firm, palpable 4 cm below umbilicus. Perineum: perineal hematoma improving, smaller this morning Lower Extremities: No lower extremity edema or swelling. No deep calf pain. Louise's negative bilaterally. Results & Data ([facility]) Vital Signs (Past 12 Hours) Vital Signs Temp Pulse Pulse Resp BP BP Pulse Ox 04/27/20 04:30 36.6 C 89 18 112/76 04/26/20 23:55 36.4 C L 85 18 119/76 04/26/20 18:45 36.9 C 94 H 16 114/69 98 04/26/20 17:43 96 H 126/73 04/26/20 17:40 36.4 C L 20 04/26/20 17:28 103 H 126/68 Resident Activity Tracking Resident Involvement: Resident Care Provided Care Provided: Adult Hospital Medicine and OB Delivery
[2020-04-27 06:24] LABS: Hemoglobin 8.8 g/dL (12.0-16.0); Mean Corpuscular Hemoglobin 23.8 pg (25-34); Mean Corpuscular Hgb Conc 30.3 g/dL (32-36); Mean Corpuscular Volume 78.4 fL (80-100); Mean Platelet Volume 10.4 fL (7.4-10.4); Platelet Count 132 K/uL (130-400); RDW Coefficient of Variation 16.3 % (11.5-14.5); RDW Standard Deviation 46.7 fL (36.4-46.3); White Blood Count 10.53 K/uL (4.8-10.8)
[2020-04-27] MEDS: PRENATAL VITAMIN 1 TAB PO SCH (08:38)
[2020-04-27] MEDS: DOCUSATE SODIUM 100 MG CAP PO SCH ×2 (08:38→21:40)
--- NOTE | 2020-04-28 05:27 | Obstetrical Progress Note ---
Date of Service April 28, 2020 Assessment & Plan (1) Encounter for supervision of normal in multigravida, antepartum: S/p after IOL for GDM (diet-controlled), Day 2 - Feels well today. Eating well, voiding well, ambulating well. - Pain mostly controlled with ibuprofen 600mg Q4H PRN and Percocet Q4H PRN. - Vital signs reviewed and WNL. - Hemoglobin reviewed. 10.4 --> 8.8 --> 9.2 (today). - Blood Type: A-, GBS negative, Rubella Immune, COVID-19 negative - Continue routine post- care: encourage ambulation, monitor and control pain with Motrin and Percocet PRN (look for more improvement in pain as hematoma continues to resolve), continue regular OB diet, monitor lochia - Discussed but patient has elected to bottle feed with formula. - Went over discharge instructions this morning - After discharge, will have 6-wk follow-up with Po Nguyen HEAD PACKAGER Admission and Anticipated Discharge Date Admission Date: April 26, 2020 Supervising Physician Co-Signing Physician Notes Patient seen and evaluated and agree with the above findings and plan. Stable for discharge Subjective HPI Loreta Camacho is a 25 y/o female who is PPD 2 spontaneous vaginal delivery after IOL for GDM (diet-controlled) at 39 1/7 weeks. She reports feeling well overall this morning. Mild abdominal cramping and 5-8/10 lower back pain well managed on analgesics (both Ibuprofen and Percocet). Voiding well. Tolerating meals overnight without difficulty. Patient has been able to ambulate some. Passing gas and no bowel movement. Has persistent lochia with some improvement this morning. Currently bottle-feeding with formula. Review of Systems Review of Systems: ROS Denies fever or chills. Denies shortness of breath or cough. Denies chest pain. Denies breast pain. Denies dysuria. Denies leg pain or leg swelling. Physical Exam Physical Exam: PE General: Alert, oriented. No acute distress. Cardiac: Regular rate and rhythm. No murmurs. Respiratory: Clear to auscultation bilaterally a/p, no wheezes/rales/rhonchi. No increased work of breathing. Symmetrical chest rise. No respiratory distress. Abdomen: Soft, nontender, nondistended. Bowel sounds present. Uterus: Uterine fundus firm, palpable 4 cm below umbilicus. Perineum: perineal hematoma improving, smaller this morning Lower Extremities: No lower extremity edema or swelling. No deep calf pain. Louise's negative bilaterally. Results & Data ([facility]) Vital Signs (Past 12 Hours) Vital Signs Temp Pulse Resp BP 04/28/20 04:32 36.8 C 83 20 04/27/20 20:05 37.2 C 96 H 20 129/81 Resident Activity Tracking Resident Involvement: Resident Care Provided Care Provided: OB Delivery
[2020-04-28 05:53] LABS: Hematocrit (blood only) 30.2 % (37-47); Hemoglobin 9.2 g/dL (12.0-16.0)
[2020-04-28] MEDS: IBUPROFEN 600 MG TAB PO PRN ×2 (06:08→12:56)
[2020-04-28] MEDS: OXYCODONE/ACETAMINOPHEN 5mg/325mg TAB PO PRN ×2 (06:09→12:55)
[2020-04-28] MEDS: DOCUSATE SODIUM 100 MG CAP PO SCH (08:02)
[2020-04-28] MEDS: PRENATAL VITAMIN 1 TAB PO SCH (08:02)
--- NOTE | 2020-04-28 14:17 | Obstetrical Progress Note ---
Date of Service April 28, 2020 Assessment & Plan Admission and Anticipated Discharge Date Admission Date: April 26, 2020 Subjective Asked by RN to eval patient prior to discharge. She has been tearful in room, feels like she cannot walk and cannot sit down due to vaginal and low back pain. She was evaluated by anesthesia earlier today at epidural site and found to be ok. She had been reluctant to take pain meds this morning, but has taken percocet and feels like she has had minimal improvement. I attempted to perform exam, however patient could not tolerate exam at all. Became very tearful prior to any physical contact with exam. Unable to proceed. Patient then stated that she was fine and wanted to be discharged. I discussed with her that I am concerned about a vaginal wall hematoma that could be causing this pain. She will not allow me to perform an exam, but was agreeable to H/H to eval if there is a large drop in hemoglobin that could indicate a hematoma. Then, in discussion about what we would do with a hematoma, when I suggested exam under anesthesia, she became tearful again and just wanted to leave. I discussed with her that we should check H/H to see what is happening, and she is agreeable to that and maybe discussions about further examination after that. Results & Data ([facility]) Vital Signs (Past 12 Hours) Vital Signs Temp Pulse Resp BP Pulse Ox 04/28/20 08:52 36.9 C 99 H 18 121/80 99 04/28/20 08:00 36.9 C 99 H 18 121/80 99 04/28/20 04:32 36.8 C 83 20 PG Care Time/CCT Total # of Minutes Spent Total Time Spent with Patient: Total time spent is greater than 50% in coordination of care (as documented) at patient's floor/unit and/or counseling patient: Coding Level of Care Code None
[2020-04-28 14:28] LABS: Hematocrit (blood only) 31.3 % (37-47); Hemoglobin 9.6 g/dL (12.0-16.0)
== END 2020-04-28 16:10 | disposition home or self-care (01) | DRG 807 ==
LOC: 4S1 07:47 → 4S2 18:20
DX: Z3A.39 39 weeks gestation of pregnancy; O24.420 Gestational diabetes mellitus in childbirth, diet controlled; Z37.0 Single live birth